=== PATIENT | female | born 1955 | race Caucasian/White ===

== ENCOUNTER → 2020-05-23 | Outpatient (CLI) | payer BC ==
--- NOTE | 2020-05-23 21:33 | CT ---
EXAMINATION TYPE: CT angio neck DATE OF EXAM: 05/23/2020 HISTORY: abnormal carotid US; left-sided stenosis suspected. COMPARISON: NONE CT DLP: 483.4 mGycm. Automated Exposure Control for Dose Reduction was Utilized. TECHNIQUE: CTA scan of the neck is performed with IV Contrast, patient injected with 65cc mL of Isov ue 370, axial images are obtained, coronal and sagittal reformatted images are reviewed. Three-D roxy nstructed images are created on an independent workstation and reviewed. FINDINGS: Carotid/Vascular Structures: Mild mixed plaque in the aortic arch. Normal 3 vessel origin from the ao rtic arch. Right common carotid artery shows normal origin from right brachiocephalic artery. No sign ificant plaque or stenosis of right common or internal carotid artery including at level of right car otid bulb. Patent external carotid artery without significant plaque or stenosis. Mild calcified plaq ue supraclinoid segment distal right internal carotid artery. Codominant vertebrobasilar system patent to basilar origin. No significant plaque or stenosis in the left common or internal carotid artery including available c arotid bulb. Patent external carotid artery without significant plaque or stenosis. Seen best on coronal mid series 11 image 16 there is severe peripheral mixed predominantly noncalcifi ed plaque in the left subclavian artery causing stenosis seen greatest sagittal image 14 series 12 an d axial image 27 with lumen diameter narrowed to 1.9 mm and reconstitution superior to this to 7.1 mm marked on coronal map images. Other: Mild to moderate underlying emphysematous change in the visualized upper lungs. Slight underly ing scoliotic curvature positioning. Loss of normal cervical curvature with moderate spurring and dis c space narrowing C5-C6 and C6-C7 levels. IMPRESSION: Significant focal plaque left subclavian artery causing stenosis estimated at 70-75% as d etailed above.
== END | disposition home or self-care (01) ==
LOC: RADCTMAIN 18:53
PROVIDERS: ATTEND Thoracic Surgery (Cardiothoracic Vascular Surgery)
DX: I70.8 Atherosclerosis of other arteries (principal)
CPT/HCPCS: 70498; Q9967

== ENCOUNTER 2020-06-20 15:43 | Emergency (ER) | payer BC ==
[2020-06-20 15:49] VITALS: BP 159/87; PULSE 89; RESP 18; TEMP 98.3
--- NOTE | 2020-06-20 16:18 | ED ---
General Adult HPI - General Chief complaint: Wound/Laceration Stated complaint: Finger lac Time Seen by Provider: 06/20/20 15:57 Source: patient, RN notes reviewed Mode of arrival: ambulatory Limitations: no limitations - History of Present Illness Initial comments: 65-year-old female presents to the emergency department for a chief complaint of laceration. Patient has a laceration noted to her right fifth digit lateral aspect. Patient states this occurred 4 days ago. Patient states she was using a Ernie slicer when she sliced off the lateral aspect of the right fifth digit distal phalanx. Patient states she cannot get this stopped bleeding so she put the avulsed skin back on and held pressure. Patient states it is now adhered and she is unsure what to do with this. Patient is up-to-date on tetanus as of 2 years ago. She denies any streaking redness. Denies fevers or chills.Patient has no other complaints at this time including shortness of breath, chest pain, abdominal pain, nausea or vomiting, headache, or visual changes. - Related Data Home Medications Medication Instructions Recorded Confirmed Simvastatin [Zocor] 10 mg PO HS 06/27/15 08/09/15 amLODIPine BESYLATE [Norvasc] 2.5 mg PO BID 06/27/15 08/09/15 lisinopriL [Zestril] 10 mg PO BID 06/27/15 08/09/15 Previous Rx's Medication Instructions Recorded Cephalexin [Keflex] 500 mg PO Q6HR 7 Days #28 cap 06/20/20 Allergies Allergy/AdvReac Type Severity Reaction Status Date / Time No Known Allergies Allergy Verified 06/20/20 15:49 Review of Systems ROS Statement: Those systems with pertinent positive or pertinent negative responses have been documented in the HPI. ROS Other: All systems not noted in ROS Statement are negative. Past Medical History Past Medical History: Eye Disorder, Hyperlipidemia, Hypertension Additional Past Medical History / Comment(s): KYLE CATARACTS, CYST ON LIVER History of Any Multi-Drug Resistant Organisms: None Reported Past Surgical History: Hysterectomy, Orthopedic Surgery Additional Past Surgical History / Comment(s): RT LEG ORIF,CATARACT RIGHT EYE Additional Past Anesthesia/Blood Transfusion Reaction / Comment(s): STATES IS VERY SENSITIVE TO MEDICATIONS, HAS A VERY HARD TIME WAKING UP WITH ANY ANESTHESIA Past Psychological History: No Psychological Hx Reported Smoking Status: Current every day smoker Past Alcohol Use History: None Reported Past Drug Use History: None Reported - Past Family History Sister(s) Family Medical History: Cancer Additional Family Medical History / Comment(s): 2 SISTERS, ONE ON SKIN OF THIGH, ONE PANCREAS General Exam Limitations: no limitations General appearance: alert, in no apparent distress Head exam: Present: atraumatic, normocephalic, normal inspection Eye exam: Present: normal appearance, PERRL, EOMI. Absent: scleral icterus, conjunctival injection, periorbital swelling ENT exam: Present: normal exam, mucous membranes moist Neck exam: Present: normal inspection, full ROM. Absent: tenderness, meningismus, lymphadenopathy Respiratory exam: Present: normal lung sounds bilaterally. Absent: respiratory distress, wheezes, rales, rhonchi, stridor Cardiovascular Exam: Present: regular rate, normal rhythm, normal heart sounds. Absent: systolic murmur, diastolic murmur, rubs, gallop, clicks Extremities exam: Present: other (patient has a superficial skin avulsion laceration noted to the lateral aspect of the right fifth distal phalanx. This is not deep. Do not suspect this to involve bone. intact remainder of finger has a capillary refill less than 2 seconds. There is a blackened skin flap applied to the avulsion injury area without capillary refill..) Course Vital Signs 06/20/20 15:47 Temperature 98.3 F Pulse Rate 89 Respiratory 18 Rate Blood Pressure 159/87 O2 Sat by Pulse 99 Oximetry Medical Decision Making - Medical Decision Making HPI and physical exam as documented. At this point skin flap was reapplied 4 days ago by patient and is now adhered to the wound. Skin flap is black and however the remainder of the finger has intact capillary refill. I do not suspect this to involve bone or other deep structure injury given nature of superficial avulsion. At this point as flap is adhered it will not be removed. it will likely scab and fall off with time. However I did start patient on antibiotics and discussed monitoring for signs of infection. She will follow-up with her doctor. She will return for any worsening symptoms. Disposition Clinical Impression: Avulsion of skin of finger Disposition: HOME SELF-CARE Condition: Good Instructions (If sedation given, give patient instructions): Skin Avulsion (ED) Additional Instructions: please monitor for infection such as swelling or spreading redness and return if these occur. Otherwise take antibiotic as directed. Follow-up with your doctor in one to 2 days. Return to the emergency room for any worsening symptoms. Prescriptions: Cephalexin [Keflex] 500 mg PO Q6HR 7 Days #28 cap Is patient prescribed a controlled substance at d/c from ED?: No Referrals: Marshall Angel MD [Primary Care Provider] - 1-2 days Time of Disposition: 16:17
== END 2020-06-20 16:26 | disposition home or self-care (01) ==
LOC: EC 15:43
DX: S61.216A Laceration without foreign body of right little finger without damage to nail, initial encounter (principal); I10 Essential (primary) hypertension; E78.5 Hyperlipidemia, unspecified; F17.200 Nicotine dependence, unspecified, uncomplicated; Z79.899 Other long term (current) drug therapy; Z98.890 Other specified postprocedural states; W26.8XXA Contact with other sharp object(s), not elsewhere classified, initial encounter; Y92.009 Unspecified place in unspecified non-institutional (private) residence as the place of occurrence of the external cause
CPT/HCPCS: 99282

== ENCOUNTER 2020-07-20 06:01 | Day surgery (SDC) | payer BC ==
[2020-07-14 13:47] VITALS: BMI 17.9
[~2020-07-20 06:01] MED LIST: ALPRAZolam 0.25 MG TAB PO PRN; ASPIRIN 325 MG TAB PO STA; SODIUM CHLORIDE 0.9% 1,000 ML in EMPTY BAG 1 BAG IV ONE; ZOLPIDEM 5 MG TAB PO PRN
[2020-07-20] MEDS ORDERED: SODIUM CHLORIDE 0.9% 1,000 ML IV ONE (06:11)
[2020-07-20 06:28] VITALS: RESP 16; TEMP 98.5
[2020-07-20 06:36] LABS: Basophils # (A) 0.2 k/uL (0-0.2); Basophils % (A) 2 %; Eosinophils # (A) 0.3 k/uL (0-0.7); Eosinophils % (A) 3 %; HCT 48.2 % (34.0-46.0); HGB 15.3 gm/dL (11.4-16.0); Lymphocytes # (A) 2.6 k/uL (1.0-4.8); Lymphocytes % (A) 26 %; MCH 29.1 pg (25.0-35.0); MCHC 31.8 g/dL (31.0-37.0); MCV 91.5 fL (80.0-100.0); Monocytes # (A) 0.4 k/uL (0-1.0); Monocytes % (A) 4 %; Neutrophils # (A) 6.2 k/uL (1.3-7.7); Neutrophils % (A) 64 %; Platelet Count 379 k/uL (150-450); RBC 5.26 m/uL (3.80-5.40); RDW 13.2 % (11.5-15.5); WBC 9.7 k/uL (3.8-10.6)
[2020-07-20 06:43] LABS: Sodium 142 mmol/L (137-145)
[2020-07-20 06:44] LABS: African American GFR (CKD) >90 (>60 ml/min/1.73 sqM); Anion Gap 9 mmol/L; Blood Urea Nitrogen 13 mg/dL (7-17); Calcium 9.5 mg/dL (8.4-10.2); Carbon Dioxide 29 mmol/L (22-30); Chloride 104 mmol/L (98-107); Glucose 96 mg/dL (74-99); Non-African American GFR(CKD) 88 (>60 ml/min/1.73 sqM)
[2020-07-20 06:56] LABS: Potassium 4.1 mmol/L (3.5-5.1)
[2020-07-20] MEDS ORDERED: MIDAZOLAM 2 MG/2 ML VIAL IVP ONE (07:48)
[2020-07-20] MEDS ORDERED: LIDOCAINE 1% INJ 10MG/ML (20 ML MDV) SQ ONE (07:49)
[2020-07-20] MEDS ORDERED: IOPAMIDOL-250 100ML BTL INTRAARTER ONE (08:15)
[2020-07-20] MEDS ORDERED: CLOPIDOGREL 75 MG TAB PO ONE (08:20)
[2020-07-20] MEDS ORDERED: SODIUM CHLORIDE 0.9% 1,000 ML IV SCH (09:30)
[2020-07-20 12:43] VITALS: BP 156/78; PULSE 88
--- NOTE | 2020-07-20 14:01 | P.OP ---
Date of Procedure: 07/20/20 Description of Procedure: Preoperative diagnosis: Left subclavian steal syndrome, subclavian artery stenosis Postoperative diagnosis: Same Procedure: [#1 ultrasound guided left upper extremity brachial artery access #2 left upper extremity angiogram #3 left subclavian stent 8 x 27 VISI Pro #4 moderate conscious sedation 25 minutes with Versed and fentanyl] Surgeon: Nikole Lezama D.O. EBL: [Less than 10 mL] IV fluids: [See records] Urine output: [None measured] Drains: [None placed] Complications: [None immediately apparent] Condition: [Stable to recovery] Operative indication and findings: [The patient is a 65-year-old female who initially got workup and evaluated for dizziness. She was shown to have retrograde flow of her vertebrals and pressure discrepancies in her upper extremities. She subsequently underwent a computed tomography scan showing subclavian stenosis area at that initial point of her visit she was not having any symptoms. Over the next few months with increasing use, she began having more weakness and dropping things in her left extremity. She presented and was interested in undergoing further revascularization attempts. Risks and benefits were discussed. She seemingly understood and was willing to proceed as such.] Procedure in detail: [The patient was taken to the operative suite and placed in supine position. The left upper extremity was prepped and draped in usual sterile fashion. A preprocedure timeout was performed, all parties are in agreement. The OpSite was utilized and the left brachial artery was identified. The skin overlying was anesthetized with 1% lidocaine plain and under direct visualization a micropuncture needle was used to access the brachial artery. A 6 slender sheath was placed. A left upper artery angiogram was performed revealing a widely patent brachial, axillary and distal subclavian artery. At the proximal subclavian just proximal to the vertebral artery, there was a high- grade stenosis greater than 90%. Catheters and wires were used. After crossing the lesion the intraluminal space was confirmed. Given the location of the vertebral artery, a noncovered stent was utilized. An 8 x 27 was placed overlying the stenosis and deployed. Post procedure imaging revealed significant improvement with minimal stenosis remaining. Catheters and wires were removed. The sheath was removed and manual pressure was held until hemostasis was adequate. Patient continued to have palpable pulses following the procedure. Her radial pulses increased in strength following the procedure.]
--- NOTE | 2020-07-20 16:48 | IR ---
EXAMINATION TYPE: IR stent intravas non coronary DATE OF EXAM: 07/20/2020 CLINICAL HISTORY: Left subclavian stenosis. TECHNIQUE: Fluoroscopy. COMPARISON: CTA neck May 23, 2020. FINDINGS: Fluoroscopic guidance was provided during left upper extremity angiogram with stenting pro cedure performed by Dr. Lezama. A total of 100 seconds of fluoroscopic time was utilized during the p rocedure and four cine runs are acquired. Please refer to procedure note for further details as I was not present nor performed procedure. IMPRESSION: As Above.
== END 2020-07-20 12:30 | disposition home or self-care (01) ==
LOC: CATHCVL 06:01
PROVIDERS: ATTEND Surgery
DX: I70.8 Atherosclerosis of other arteries (principal); G45.8 Other transient cerebral ischemic attacks and related syndromes; M79.606 Pain in leg, unspecified; Z72.0 Tobacco use; Z79.899 Other long term (current) drug therapy; Z90.710 Acquired absence of both cervix and uterus
CPT/HCPCS: 75710; 37236; 80048; 85025; C1894; C1769 ×3; C1876; J2250; J2001; Q9966; 50433

== ENCOUNTER 2021-04-18 20:31 | Emergency (ER) | payer BC, OTHER ==
[2021-04-18 20:54] VITALS: RESP 18; TEMP 98
[2021-04-18] MEDS ORDERED: SODIUM CHLORIDE 0.9% 500 ML 500 ML IV STA (21:34)
[2021-04-18 22:22] LABS: Basophils # (A) 0.1 k/uL (0-0.2); Basophils % (A) 1 %; Eosinophils # (A) 0.2 k/uL (0-0.7); Eosinophils % (A) 2 %; HCT 43.2 % (34.0-46.0); HGB 14.4 gm/dL (11.4-16.0); Lymphocytes # (A) 3.4 k/uL (1.0-4.8); Lymphocytes % (A) 37 %; MCH 29.6 pg (25.0-35.0); MCHC 33.3 g/dL (31.0-37.0); MCV 88.7 fL (80.0-100.0); Mean Platelet Volume 6.7; Monocytes # (A) 0.4 k/uL (0-1.0); Monocytes % (A) 4 %; Neutrophils # (A) 5.1 k/uL (1.3-7.7); Neutrophils % (A) 55 %; Platelet Count 385 k/uL (150-450); RBC 4.86 m/uL (3.80-5.40); RDW 13.3 % (11.5-15.5); WBC 9.3 k/uL (3.8-10.6)
--- NOTE | 2021-04-18 22:28 | ED ---
Recheck HPI - General Chief Complaint: Recheck/Abnormal Lab/Rx Stated Complaint: Dizzy,Tingle in fingers Time Seen by Provider: 04/18/21 21:06 Source: patient Mode of arrival: ambulatory Limitations: no limitations - History of Present Illness Initial Comments: 65 year-old female patient presents to the emergency department for evaluation of dizziness, elevated blood pressure, and tingling to the bilateral fingers. Patient states that she has been feeling lightheaded on and off all day. States that the feeling comes out of nowhere, doesn't seem to worsen with position changes or head movement. States that tonight she was checking her blood pressures and they kept rising. She states that afterward she had tingling in her fingers so she came in for further evaluation. States the tingling was bilateral, not accompanied by weakness. Denies any difficulty speaking or facial droop. States her she takes amlodipine and lisinopril for blood pressure, her physician added hydrochlorothiazide 2-3 weeks ago. She denies any headache, blurred vision, or double vision. Denies any current numbness or tingling. Denies any chest pain or shortness of breath. Patient denies any recent rash, fever, chills, cough, abdominal pain, nausea, vomiting, diarrhea, constipation, back pain, hematuria, dysuria, urinary urgency, urinary frequency, headache, visual changes, or any other complaints. - Related Data Home Medications Medication Instructions Recorded Confirmed Simvastatin [Zocor] 10 mg PO HS 06/27/15 04/18/21 lisinopriL [Zestril] 10 mg PO BID 06/27/15 04/18/21 Aspirin 81 mg PO DAILY 07/20/20 04/18/21 amLODIPine [Norvasc] 2.5 mg PO BID 04/18/21 04/18/21 hydroCHLOROthiazide 25 mg PO DAILY 04/18/21 04/18/21 Allergies Allergy/AdvReac Type Severity Reaction Status Date / Time No Known Allergies Allergy Verified 04/18/21 21:55 Review of Systems ROS Statement: Those systems with pertinent positive or pertinent negative responses have been documented in the HPI. ROS Other: All systems not noted in ROS Statement are negative. 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 History of Any Multi-Drug Resistant Organisms: None Reported Past Surgical History: Hysterectomy, Orthopedic Surgery Additional Past Surgical History / Comment(s): RT LEG ORIF, BILATERAL CATARACTS REMOVED. Past Anesthesia/Blood Transfusion Reactions: Motion Sickness Additional Past Anesthesia/Blood Transfusion Reaction / Comment(s): STATES IS VERY SENSITIVE TO MEDICATIONS, HAS A VERY HARD TIME WAKING UP WITH ANY ANESTHESIA. Past Psychological History: No Psychological Hx Reported Smoking Status: Current every day smoker Past Alcohol Use History: None Reported Past Drug Use History: None Reported - Past Family History Brother(s) Additional Family Medical History / Comment(s): "Blood clot, from it." Sister(s) Family Medical History: Cancer Additional Family Medical History / Comment(s): 2 SISTERS, ONE PANCREACREATIC, other had it in her leg. General Exam Limitations: no limitations General appearance: alert, in no apparent distress, other (This is a well-deve loped, well-nourished adult female patient in no acute distress. Vital signs upon presentation temperature 98.2F, pulse 83, respirations 18, blood pressure 157/78, pulse ox 98% on room air.) Eye exam: Present: normal appearance, PERRL, EOMI. Absent: scleral icterus, conjunctival injection, periorbital swelling ENT exam: Present: normal exam, normal oropharynx, mucous membranes moist Respiratory exam: Present: normal lung sounds bilaterally. Absent: respiratory distress, wheezes, rales, rhonchi, stridor Cardiovascular Exam: Present: regular rate, normal rhythm, normal heart sounds. Absent: systolic murmur, diastolic murmur, rubs, gallop, clicks GI/Abdominal exam: Present: soft, normal bowel sounds. Absent: distended, tenderness, guarding, rebound, rigid Neurological exam: Present: alert, oriented X3, CN II-XII intact Expanded Speech: Present: fluid speech Cranial nerves: EOM's Intact: Normal, Nystagmus: Normal Motor strength exam: RUE: 5, LUE: 5, RLE: 5, LLE: 5 Eye Response: (4) open spontaneously Motor Response: (6) obeys commands Verbal Response: (5) oriented Romulo Total: 15 Psychiatric exam: Present: normal affect, normal mood Skin exam: Present: warm, dry, intact, normal color. Absent: rash Course Vital Signs 04/18/21 04/18/21 04/19/21 20:50 21:50 00:52 Temperature 98.0 F Pulse Rate 83 Pulse Rate [ 83 76 Sitting] Pulse Rate [ 82 78 Standing] Pulse Rate [ 76 78 Supine] Respiratory 18 Rate Blood Pressure 157/78 Blood Pressure 131/70 130/72 [Sitting] Blood Pressure 97/68 114/78 [Standing] Blood Pressure 129/70 115/78 [Supine] O2 Sat by Pulse 98 Oximetry Medical Decision Making - Medical Decision Making 65-year-old female patient presented to the emergency department today for evaluation of dizziness, elevated blood pressure, and paresthesia to the bilateral hands. Physical examination was unremarkable. She was neurologically intact without focal deficits. BP here was elevated. Labs reviewed and were unr emarkable. BP dropped to 90s systolic with orthostatic vitals. She was given 1L IV fluids. Repeated orthos which did improve. She will be discharged to follow up with her primary care physician for recheck in 1-2 days. Return parameters were discussed in detail. She verbalizes understanding and agrees with this plan. Case discussed with my attending Dr. Alonso. - Lab Data Result diagrams: 04/18/21 22:03 04/18/21 22:03 Lab Results 04/18/21 04/18/21 04/18/21 Range/Units 22:03 22:03 22:03 WBC 9.3 (3.8-10.6) k/uL RBC 4.86 (3.80-5.40) m/uL Hgb 14.4 (11.4-16.0) gm/dL Hct 43.2 (34.0-46.0) % MCV 88.7 (80.0-100.0) fL MCH 29.6 (25.0-35.0) pg MCHC 33.3 (31.0-37.0) g/dL RDW 13.3 (11.5-15.5) % Plt Count 385 (150-450) k/uL MPV 6.7 Neutrophils % 55 % Lymphocytes % 37 % Monocytes % 4 % Eosinophils % 2 % Basophils % 1 % Neutrophils # 5.1 (1.3-7.7) k/uL Lymphocytes # 3.4 (1.0-4.8) k/uL Monocytes # 0.4 (0-1.0) k/uL Eosinophils # 0.2 (0-0.7) k/uL Basophils # 0.1 (0-0.2) k/uL Sodium 128 L (137-145) mmol/L Potassium 4.1 (3.5-5.1) mmol/L Chloride 92 L (98-107) mmol/L Carbon Dioxide 28 (22-30) mmol/L Anion Gap 8 mmol/L BUN 10 (7-17) mg/dL Creatinine 0.59 (0.52-1.04) mg/dL Est GFR (CKD-EPI)AfAm >90 (>60 ml/min/1.73 sqM) Est GFR (CKD-EPI)NonAf >90 (>60 ml/min/1.73 sqM) Glucose 93 (74-99) mg/dL Calcium 9.6 (8.4-10.2) mg/dL Total Bilirubin 0.2 (0.2-1.3) mg/dL AST 24 (14-36) U/L ALT 14 (4-34) U/L Alkaline Phosphatase 81 (38-126) U/L Troponin I (0.000-0.034) ng/mL Total Protein 6.9 (6.3-8.2) g/dL Albumin 4.4 (3.5-5.0) g/dL Urine Color Colorless Urine Appearance Clear (Clear) Urine pH 7.5 (5.0-8.0) Ur Specific [place] 1.002 (1.001-1.035) Urine Protein Negative (Negative) Urine Glucose (UA) Negative (Negative) Urine Ketones Negative (Negative) Urine Blood Small H (Negative) Urine Nitrite Negative (Negative) Urine Bilirubin Negative (Negative) Urine Urobilinogen <2.0 (<2.0) mg/dL Ur Leukocyte Esterase Large H (Negative) Urine RBC 2 (0-5) /hpf Urine WBC 33 H (0-5) /hpf Ur Squamous Epith Cells 2 (0-4) /hpf Urine Bacteria Moderate H (None) /hpf Urine Mucus Rare H (None) /hpf 04/18/21 Range/Units 22:03 WBC (3.8-10.6) k/uL RBC (3.80-5.40) m/uL Hgb (11.4-16.0) gm/dL Hct (34.0-46.0) % MCV (80.0-100.0) fL MCH (25.0-35.0) pg MCHC (31.0-37.0) g/dL RDW (11.5-15.5) % Plt Count (150-450) k/uL MPV Neutrophils % % Lymphocytes % % Monocytes % % Eosinophils % % Basophils % % Neutrophils # (1.3-7.7) k/uL Lymphocytes # (1.0-4.8) k/uL Monocytes # (0-1.0) k/uL Eosinophils # (0-0.7) k/uL Basophils # (0-0.2) k/uL Sodium (137-145) mmol/L Potassium (3.5-5.1) mmol/L Chloride (98-107) mmol/L Carbon Dioxide (22-30) mmol/L Anion Gap mmol/L BUN (7-17) mg/dL Creatinine (0.52-1.04) mg/dL Est GFR (CKD-EPI)AfAm (>60 ml/min/1.73 sqM) Est GFR (CKD-EPI)NonAf (>60 ml/min/1.73 sqM) Glucose (74-99) mg/dL Calcium (8.4-10.2) mg/dL Total Bilirubin (0.2-1.3) mg/dL AST (14-36) U/L ALT (4-34) U/L Alkaline Phosphatase (38-126) U/L Troponin I <0.012 (0.000-0.034) ng/mL Total Protein (6.3-8.2) g/dL Albumin (3.5-5.0) g/dL Urine Color Urine Appearance (Clear) Urine pH (5.0-8.0) Ur Specific [place] (1.001-1.035) Urine Protein (Negative) Urine Glucose (UA) (Negative) Urine Ketones (Negative) Urine Blood (Negative) Urine Nitrite (Negative) Urine Bilirubin (Negative) Urine Urobilinogen (<2.0) mg/dL Ur Leukocyte Esterase (Negative) Urine RBC (0-5) /hpf Urine WBC (0-5) /hpf Ur Squamous Epith Cells (0-4) /hpf Urine Bacteria (None) /hpf Urine Mucus (None) /hpf - EKG Data -: EKG Interpreted by Me EKG Comments: EKG obtained at 2146 shows normal sinus rhythm with a ventricular rate 78, NV interval 176, QRS duration 90, QT 386, QTC 440. No evidence of ST elevation or depression. Disposition Clinical Impression: Dizziness, Orthostatic hypotension Disposition: HOME SELF-CARE Condition: Good Instructions (If sedation given, give patient instructions): Paresthesia (ED), Dizziness (ED) Additional Instructions: Follow-up with the primary care physician for recheck as soon as possible. Call in the morning for further instructions regarding her blood pressure medication. Informed them you had orthostatic hypotension and had to come to the emergency department. Return for any new, worsening, or concerning symptoms. Is patient prescribed a controlled substance at d/c from ED?: No Referrals: Marshall Angel MD [Primary Care Provider] - 1-2 days Time of Disposition: 01:06
[2021-04-18 22:35] LABS: ALT 14 U/L (4-34); AST 24 U/L (14-36); African American GFR (CKD) >90 (>60 ml/min/1.73 sqM); Albumin 4.4 g/dL (3.5-5.0); Alkaline Phosphatase 81 U/L (38-126); Anion Gap 8 mmol/L; Blood Urea Nitrogen 10 mg/dL (7-17); Calcium 9.6 mg/dL (8.4-10.2); Carbon Dioxide 28 mmol/L (22-30); Chloride 92 mmol/L (98-107); Glucose 93 mg/dL (74-99); Non-African American GFR(CKD) >90 (>60 ml/min/1.73 sqM); Potassium 4.1 mmol/L (3.5-5.1); Sodium 128 mmol/L (137-145); Total Bilirubin 0.2 mg/dL (0.2-1.3); Total Protein 6.9 g/dL (6.3-8.2)
[2021-04-18 22:44] LABS: Appearance,Urine Clear (Clear); Bacteria,Urine Moderate /hpf; Bilirubin,Urine Negative (Negative); Blood,Urine Small (Negative); Color,Urine Colorless; Glucose,Urine (UA) Negative (Negative); Ketones,Urine Negative (Negative); Leukocyte Esterase,Urine Large (Negative); Mucus,Urine Rare /hpf; Nitrite,Urine Negative (Negative); PH, Urine 7.5 (5.0-8.0); Protein,Urine Negative (Negative); RBC,Urine 2 /hpf (0-5); Specific Gravity,Urine 1.002 (1.001-1.035); Squamous Epithelial Cell,Urine 2 /hpf (0-4); Urobilinogen,Urine <2.0 mg/dL (<2.0); WBC,Urine 33 /hpf (0-5)
[2021-04-19 01:01] VITALS: BP 115/78; PULSE 78
== END 2021-04-19 01:25 | disposition home or self-care (01) ==
LOC: EC 20:31
DX: I95.1 Orthostatic hypotension (principal); R20.2 Paresthesia of skin; E78.5 Hyperlipidemia, unspecified; M79.7 Fibromyalgia; F17.200 Nicotine dependence, unspecified, uncomplicated; Z79.82 Long term (current) use of aspirin; Z79.899 Other long term (current) drug therapy
CPT/HCPCS: 36415; 80053; 81001; 84484; 85025; 87086; 93005; 99284

== ENCOUNTER 2022-10-31 11:20 | Emergency (ER) | payer MEDICARE ==
[2022-10-31 11:34] VITALS: TEMP 97.6
--- NOTE | 2022-10-31 11:59 | XR ---
EXAMINATION TYPE: XR foot complete LT, XR ankle complete LT DATE OF EXAM: 10/31/2022 CLINICAL HISTORY: pain TECHNIQUE: Frontal, lateral and oblique images of the left foot and ankle are obtained. COMPARISON: None. FINDINGS: Vague lucency traverses the body of the os calcis. Nondisplaced fracture is difficult to ex clude. Correlate clinically with point tenderness. Osseous structures are otherwise intact. The joint spaces appear within normal limits. Mild hallux valgus deformity of the great toe. The overlying so ft tissue appears unremarkable. IMPRESSION: : Vague lucency traverses the body of the os calcis. Nondisplaced fracture is difficult to exclude. C orrelate clinically with point tenderness.
--- NOTE | 2022-10-31 13:06 | CT ---
EXAMINATION TYPE: CT foot LT wo con DATE OF EXAM: 10/31/2022 COMPARISON: Same day ankle and foot x-ray HISTORY: Pain, possible calcaneus fracture CT DLP: 190.8 mGycm Automated exposure control for dose reduction was used. Unenhanced CT of the left foot was performed with bone and soft tissue window settings submitted. Coronal axial and sagittal images are reviewed. FINDINGS: Virtually nondisplaced fracture of the left os calcis at its body. There is mild comminution seen ext ending laterally as well as a fracture component extending to the medial calcaneal body. There is a n ondisplaced component extending to the superior facet with extension into the talocalcaneal joint med ially. Posterior facet is intact. No extension into the calcaneal sulcus or sinus tarsi soft tissue edema is noted. No additional fractures are evident. IMPRESSION: VIRTUALLY NONDISPLACED FRACTURE OF THE OS CALCIS ON THE LEFT DISCUSSED ABOVE.
--- NOTE | 2022-10-31 13:25 | ED ---
Lower Extremity Injury HPI - General Chief Complaint: Extremity Injury, Lower Stated Complaint: fall, lt foot injury Time Seen by Provider: 10/31/22 12:01 Source: patient, RN notes reviewed Mode of arrival: ambulatory Limitations: no limitations - History of Present Illness Initial Comments: 67-year-old female presents emergency Department with chief complaint left foot and ankle pain. Patient states that she misstepped and fell onto her left heel. Patient has bruising, swelling. Patient states is very painful to put any weight on her foot. No head injury loss conscious no paresthesias. Patient states that she is seen Dr. Noonan for right leg injury in the past. - Related Data Home Medications Medication Instructions Recorded Confirmed Simvastatin [Zocor] 10 mg PO HS 06/27/15 04/18/21 lisinopriL [Zestril] 10 mg PO BID 06/27/15 04/18/21 Aspirin 81 mg PO DAILY 07/20/20 04/18/21 amLODIPine [Norvasc] 2.5 mg PO BID 04/18/21 04/18/21 hydroCHLOROthiazide 25 mg PO DAILY 04/18/21 04/18/21 Allergies Allergy/AdvReac Type Severity Reaction Status Date / Time No Known Allergies Allergy Verified 10/31/22 11:34 Review of Systems ROS Statement: Those systems with pertinent positive or pertinent negative responses have been documented in the HPI. ROS Other: All systems not noted in ROS Statement are negative. 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 History of Any Multi-Drug Resistant Organisms: None Reported Past Surgical History: Hysterectomy, Orthopedic Surgery Additional Past Surgical History / Comment(s): RT LEG ORIF, BILATERAL CATARACTS REMOVED. Past Anesthesia/Blood Transfusion Reactions: Motion Sickness Additional Past Anesthesia/Blood Transfusion Reaction / Comment(s): STATES IS VERY SENSITIVE TO MEDICATIONS, HAS A VERY HARD TIME WAKING UP WITH ANY ANESTHESIA. Past Psychological History: No Psychological Hx Reported Smoking Status: Current every day smoker Past Alcohol Use History: None Reported Past Drug Use History: None Reported - Past Family History Brother(s) Additional Family Medical History / Comment(s): "Blood clot, from it." Sister(s) Family Medical History: Cancer Additional Family Medical History / Comment(s): 2 SISTERS, ONE PANCREACREATIC, other had it in her leg. General Exam Limitations: no limitations General appearance: alert, in no apparent distress Head exam: Present: atraumatic, normocephalic, normal inspection Respiratory exam: Present: normal lung sounds bilaterally. Absent: respiratory distress, wheezes, rales, rhonchi, stridor Cardiovascular Exam: Present: regular rate, normal rhythm, normal heart sounds. Absent: systolic murmur, diastolic murmur, rubs, gallop, clicks Extremities exam: Present: other (Left heel there is tenderness palpation ecchymosis on the dorsal aspect and plantar aspect of the midfoot. No proximal tib-fib tenderness neurovascular intact) Neurological exam: Present: alert Skin exam: Present: warm, dry, intact, normal color. Absent: rash Course Vital Signs 10/31/22 11:32 Temperature 97.6 F Pulse Rate 106 H Respiratory 20 Rate Blood Pressure 143/69 O2 Sat by Pulse 99 Oximetry Procedures - Orthopedic Splinting/Casting Injury #1 Side: left Lower Extremity Injury Location: short leg, ankle, foot Lower Extremity Immobilizer: posterior splint (Well-padded), synthetic pre- padded splint Other Orthopedic Equipment: walker Additional Comments: Neurovascular intact before procedure, performed by me Medical Decision Making - Medical Decision Making 67-year-old female presented for a fall, left foot and ankle x-ray left foot and left ankle interpreted by me there is calcaneus fracture CT of the foot was obtained interpreted by me showing calcaneus fracture nondisplaced and read by radiology. Case discussed with Dr. Vital recommends patient be placed in a posterior splint to follow-up in office tomorrow to remain nonweightbearing. She is to elevate, ice and take [id number] pain meds as directed she was offered narcotic pain meds patient declines. Disposition Clinical Impression: Left calcaneal fracture Disposition: HOME SELF-CARE Condition: Stable Instructions (If sedation given, give patient instructions): Calcaneal Fracture (ED) Additional Instructions: Please return to the Emergency Department if symptoms worsen or any other concerns. Please remain nonweightbearing and follow-up with orthopedics as directed. Is patient prescribed a controlled substance at d/c from ED?: No Referrals: Marshall Angel MD [Primary Care Provider] - 1-2 days Jose Luis Vital MD [STAFF PHYSICIAN] - 1-2 days Time of Disposition: 13:24
[2022-10-31 13:31] VITALS: BP 151/85; PULSE 86; RESP 18
== END 2022-10-31 13:31 | disposition home or self-care (01) ==
LOC: EC 11:20
DX: S92.002A Unspecified fracture of left calcaneus, initial encounter for closed fracture (principal); I10 Essential (primary) hypertension; E78.5 Hyperlipidemia, unspecified; F17.200 Nicotine dependence, unspecified, uncomplicated; Z79.899 Other long term (current) drug therapy; Z79.82 Long term (current) use of aspirin; W10.9XXA Fall (on) (from) unspecified stairs and steps, initial encounter
CPT/HCPCS: 29515; 99284

== ENCOUNTER 2024-11-25 10:18 | Emergency (ER) | payer MEDICARE ==
[2024-11-25 10:22] VITALS: TEMP 97.9
--- NOTE | 2024-11-25 10:35 | ED ---
Recheck HPI - General Chief Complaint: Recheck/Abnormal Lab/Rx Stated Complaint: sharp pain right shoulder blade Time Seen by Provider: 11/25/24 10:28 Source: patient, RN notes reviewed Mode of arrival: ambulatory Limitations: no limitations - History of Present Illness Initial Comments: This is a 69-year-old female with history of hypertension presenting with elevated blood pressure and right scapula pain since 0600 this morning. Patient states pain in right back woke up this morning, described as intermittent and sharp. Denies radiation of pain, tearing sensation, shortness of breath. Denies pain being reproducible with cough, palpation or inhalation. Endorses blood pressure of 200/100 mmHg, which is much higher than she normally sees. En dorses daily use of lisinopril, amlodipine and ASA 81, which he has taken this morning with no drop in blood pressure. Denies history of AMI, PE, aneurysm. Endorses a family history of AMI. Denies fever, chills, chest pain, dyspnea, pallor, diaphoresis, abdominal pain, N/V/D, dizziness. Onset/Timin -: hour(s) Time: 06:00 Symptoms Since Prior Visit: no new symptoms Associated Symptoms: none - Related Data Home Medications Medication Instructions Recorded Confirmed Simvastatin [Zocor] 10 mg PO HS 06/27/15 04/18/21 lisinopriL [Zestril] 10 mg PO BID 06/27/15 04/18/21 Aspirin 81 mg PO DAILY 07/20/20 04/18/21 amLODIPine [Norvasc] 2.5 mg PO BID 04/18/21 04/18/21 hydroCHLOROthiazide 25 mg PO DAILY 04/18/21 04/18/21 Allergies Allergy/AdvReac Type Severity Reaction Status Date / Time No Known Allergies Allergy Verified 11/25/24 10:22 Review of Systems ROS Statement: Those systems with pertinent positive or pertinent negative responses have been documented in the HPI. ROS Other: All systems not noted in ROS Statement are negative. 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 History of Any Multi-Drug Resistant Organisms: None Reported Past Surgical History: Hysterectomy, Orthopedic Surgery Additional Past Surgical History / Comment(s): RT LEG ORIF, BILATERAL CATARACTS REMOVED. Past Anesthesia/Blood Transfusion Reactions: Motion Sickness Additional Past Anesthesia/Blood Transfusion Reaction / Comment(s): STATES IS VERY SENSITIVE TO MEDICATIONS, HAS A VERY HARD TIME WAKING UP WITH ANY ANESTHESIA. Past Psychological History: No Psychological Hx Reported Smoking Status: Current every day smoker Past Alcohol Use History: None Reported Past Drug Use History: None Reported - Past Family History Brother(s) Additional Family Medical History / Comment(s): "Blood clot, from it." Sister(s) Family Medical History: Cancer Additional Family Medical History / Comment(s): 2 SISTERS, ONE PANCREACREATIC, other had it in her leg. General Exam Limitations: no limitations General appearance: alert, in no apparent distress Head exam: Present: atraumatic, normocephalic, normal inspection Eye exam: Present: normal appearance, PERRL, EOMI. Absent: scleral icterus, conjunctival injection, periorbital swelling ENT exam: Present: normal exam, mucous membranes moist Neck exam: Present: normal inspection. Absent: tenderness, meningismus, lymphadenopathy Respiratory exam: Present: normal lung sounds bilaterally. Absent: respiratory distress, wheezes, rales, rhonchi, stridor Cardiovascular Exam: Present: regular rate, normal rhythm, normal heart sounds. Absent: systolic murmur, diastolic murmur, rubs, gallop, clicks GI/Abdominal exam: Present: soft, normal bowel sounds. Absent: distended, tenderness, guarding, rebound, rigid Extremities exam: Present: normal inspection, full ROM, normal capillary refill, other (Bilateral posterior tibialis pulse +2. Neurovascular motor function intact. Negative erythema, stasis dermatitis, edema). Absent: tenderness, pedal edema, joint swelling, calf tenderness Back exam: Present: normal inspection Neurological exam: Present: alert, oriented X3, CN II-XII intact Psychiatric exam: Present: normal affect, normal mood Skin exam: Present: warm, dry, intact, normal color. Absent: rash Course Vital Signs 11/25/24 11/25/24 11/25/24 10:19 10:47 12:35 Temperature 97.9 F Pulse Rate 93 87 73 Respiratory 18 20 20 Rate Blood Pressure 194/79 166/89 135/82 O2 Sat by Pulse 97 97 73 L Oximetry Medical Decision Making - Medical Decision Making Was pt. sent in by a medical professional or institution (TARIQ Hamm, SHAKE TABLE OPERATOR, urgent care, hospital, or penitentiary...) When possible be specific @ -[No] Did you speak to anyone other than the patient for history (EMS, parent, family, police, friend...)? What history was obtained from this source @ -[No] Did you review nursing and triage notes (agree or disagree)? Why? @ -[I reviewed and agree with nursing and triage notes] Were old charts reviewed (outside hosp., previous admission, EMS record, old EKG, old radiological studies, urgent care reports/EKG's, penitentiary records)? Report findings @ -[No old charts were reviewed] Differential Diagnosis (chest pain, altered mental status, abdominal pain women, abdominal pain men, vaginal bleeding, weakness, fever, dyspnea, syncope, headache, dizziness, GI bleed, back pain, seizure, CVA, palpatations, mental health, musculoskeletal)? @ -Differential Chest Pain: Stable Angina, Unstable Angina, STEMI, NSTEMI Aortic Dissection, Pneumothorax, Musculoskeletal, Esophageal Spasm GERD, Cholecystitis, Pancreatitis, Zoster, this is not meant to be an all-inclusive list. Differential Back Pain: Strain, zoster, cauda equina syndrome, epidural abscess, vertebral osteomyelitis, discitis, fracture, subluxation, disc herniation, DJD, spinal stenosis, dissection, AAA, pancreatitis, peptic ulcer disease, pyelonephritis, kidney stone, this is not meant to be an all-inclusive list. EKG interpreted by me (3pts min.). @ -Sinus rhythm with incomplete RBBB. No ST changes or T wave inversion. Ventricular rate 83 bpm, JOHN PAUL 152 ms, QRS duration 95 ms, QTc 391 ms. X-rays interpreted by me (1pt min.). @ -[None done] CT interpreted by me (1pt min.). @ -[None done] U/S interpreted by me (1pt. min.). @ -[None done] What testing was considered but not performed or refused? (CT, X-rays, U/S, labs)? Why? @ -[None] What meds were considered but not given or refused? Why? @ -[None] Did you discuss the management of the patient with other professionals (professionals i.e. TARIQ Hamm, SHAKE TABLE OPERATOR, lab, RT, psych nurse, older adult social work specialist, sales marketing director, teacher, escrow officer, transplant case manager)? Give summary @ -[No] Was smoking cessation discussed for >3mins.? @ -[No] Was critical care preformed (if so, how long)? @ -[No] Were there social determinants of health that impacted care today? How? (Homelessness, low income, unemployed, alcoholism, drug addiction, transportation, low edu. Level, literacy, decrease access to med. care, shelter, rehab)? @ -[No] Was there de-escalation of care discussed even if they declined (Discuss DNR or withdrawal of care, Hospice)? DNR status @ -[No] What co-morbidities impacted this encounter? (DM, HTN, Smoking, COPD, CAD, Cancer, CVA, ARF, Chemo, Hep., AIDS, mental health diagnosis, sleep apnea, morbid obesity)? @ -[None] Was patient admitted / discharged? Hospital course, mention meds given and route, prescriptions, significant lab abnormalities, going to OR and other pertinent info. @ -[hospital course] Undiagnosed new problem with uncertain prognosis? @ -[No] Drug Therapy requiring intensive monitoring for toxicity (Heparin, Nitro, Insulin, Cardizem)? @ -[No] Were any procedures done? @ -[No] Diagnosis/symptom? @ -[default] Acute, or Chronic, or Acute on Chronic? @ -Acute Uncomplicated (without systemic symptoms) or Complicated (systemic symptoms)? @ -Complicated Side effects of treatment? @ -[No] Exacerbation, Progression, or Severe Exacerbation? @ -[No] Poses a threat to life or bodily function? How? (Chest pain, [place], [place], pneumonia, PE, COPD, DKA, ARF, appy, cholecystitis, CVA, Diverticulitis, Homicidal, Suicidal, threat to staff... and all critical care pts) @ -[No] - Lab Data Result diagrams: 11/25/24 10:39 11/25/24 10:39 Lab Results 11/25/24 11/25/24 11/25/24 Range/Units 10:39 10:39 10:39 WBC 8.0 (3.8-10.6) k/uL RBC 5.59 H (3.80-5.40) m/uL Hgb 17.1 H (11.4-16.0) gm/dL Hct 51.6 H (34.0-46.0) % MCV 92.4 (80.0-100.0) fL MCH 30.7 (25.0-35.0) pg MCHC 33.2 (31.0-37.0) g/dL RDW 13.3 (11.5-15.5) % Plt Count 481 H (150-450) k/uL MPV 6.8 Neutrophils % 68 % Lymphocytes % 23 % Monocytes % 4 % Eosinophils % 2 % Basophils % 1 % Neutrophils # 5.4 (1.3-7.7) k/uL Lymphocytes # 1.9 (1.0-4.8) k/uL Monocytes # 0.3 (0-1.0) k/uL Eosinophils # 0.2 (0-0.7) k/uL Basophils # 0.1 (0-0.2) k/uL PT 10.7 (10.0-12.5) sec INR 1.0 (<1.2) APTT 25.8 (22.0-30.0) sec D-Dimer 0.45 (<0.60) mg/L FEU Sodium 139 (137-145) mmol/L Potassium 4.3 (3.5-5.1) mmol/L Chloride 102 (98-107) mmol/L Carbon Dioxide 26 (22-30) mmol/L Anion Gap 11 mmol/L BUN 14 (7-17) mg/dL Creatinine 0.78 (0.52-1.04) mg/dL Est GFR (CKD-EPI)AfAm >90 (>60 ml/min/1.73 sqM) Est GFR (CKD-EPI)NonAf 79 (>60 ml/min/1.73 sqM) Glucose 103 H (74-99) mg/dL Calcium 10.4 H (8.4-10.2) mg/dL Magnesium 2.3 (1.6-2.3) mg/dL Total Bilirubin 0.5 (0.2-1.3) mg/dL AST 28 (14-36) U/L ALT 24 (4-34) U/L Alkaline Phosphatase 103 (38-126) U/L Troponin I (0.000-0.034) ng/mL Total Protein 8.3 H (6.3-8.2) g/dL Albumin 5.1 H (3.5-5.0) g/dL 11/25/24 Range/Units 10:39 WBC (3.8-10.6) k/uL RBC (3.80-5.40) m/uL Hgb (11.4-16.0) gm/dL Hct (34.0-46.0) % MCV (80.0-100.0) fL MCH (25.0-35.0) pg MCHC (31.0-37.0) g/dL RDW (11.5-15.5) % Plt Count (150-450) k/uL MPV Neutrophils % % Lymphocytes % % Monocytes % % Eosinophils % % Basophils % % Neutrophils # (1.3-7.7) k/uL Lymphocytes # (1.0-4.8) k/uL Monocytes # (0-1.0) k/uL Eosinophils # (0-0.7) k/uL Basophils # (0-0.2) k/uL PT (10.0-12.5) sec INR (<1.2) APTT (22.0-30.0) sec D-Dimer (<0.60) mg/L FEU Sodium (137-145) mmol/L Potassium (3.5-5.1) mmol/L Chloride (98-107) mmol/L Carbon Dioxide (22-30) mmol/L Anion Gap mmol/L BUN (7-17) mg/dL Creatinine (0.52-1.04) mg/dL Est GFR (CKD-EPI)AfAm (>60 ml/min/1.73 sqM) Est GFR (CKD-EPI)NonAf (>60 ml/min/1.73 sqM) Glucose (74-99) mg/dL Calcium (8.4-10.2) mg/dL Magnesium (1.6-2.3) mg/dL Total Bilirubin (0.2-1.3) mg/dL AST (14-36) U/L ALT (4-34) U/L Alkaline Phosphatase (38-126) U/L Troponin I <0.012 (0.000-0.034) ng/mL Total Protein (6.3-8.2) g/dL Albumin (3.5-5.0) g/dL Disposition Clinical Impression: Hypertensive urgency Disposition: HOME SELF-CARE Condition: Good Instructions (If sedation given, give patient instructions): Hypertension in the Older Adult (ED) Is patient prescribed a controlled substance at d/c from ED?: No Referrals: Marshall Angel MD [Primary Care Provider] - 1-2 days Time of Disposition: 13:02
[2024-11-25] MEDS: ASPIRIN 81 MG PO STA (10:46)
[2024-11-25] MEDS: cloNIDine HCL 0.1 MG TAB PO STA (10:47)
[2024-11-25 10:48] VITALS: RESP 20
[2024-11-25 10:51] LABS: Basophils # (A) 0.1 k/uL (0-0.2); Basophils % (A) 1 %; Eosinophils # (A) 0.2 k/uL (0-0.7); Eosinophils % (A) 2 %; HCT 51.6 % (34.0-46.0); HGB 17.1 gm/dL (11.4-16.0); Lymphocytes # (A) 1.9 k/uL (1.0-4.8); Lymphocytes % (A) 23 %; MCH 30.7 pg (25.0-35.0); MCHC 33.2 g/dL (31.0-37.0); MCV 92.4 fL (80.0-100.0); Mean Platelet Volume 6.8; Monocytes # (A) 0.3 k/uL (0-1.0); Monocytes % (A) 4 %; Neutrophils # (A) 5.4 k/uL (1.3-7.7); Neutrophils % (A) 68 %; Platelet Count 481 k/uL (150-450); RBC 5.59 m/uL (3.80-5.40); RDW 13.3 % (11.5-15.5)
[2024-11-25 11:03] LABS: Partial Thromboplastin Time 25.8 sec (22.0-30.0); Prothrombin Time 10.7 sec (10.0-12.5)
[2024-11-25 11:07] LABS: ALT 24 U/L (4-34); AST 28 U/L (14-36); African American GFR (CKD) >90 (>60 ml/min/1.73 sqM); Albumin 5.1 g/dL (3.5-5.0); Alkaline Phosphatase 103 U/L (38-126); Anion Gap 11 mmol/L; Blood Urea Nitrogen 14 mg/dL (7-17); Calcium 10.4 mg/dL (8.4-10.2); Carbon Dioxide 26 mmol/L (22-30); Chloride 102 mmol/L (98-107); Glucose 103 mg/dL (74-99); Magnesium 2.3 mg/dL (1.6-2.3); Non-African American GFR(CKD) 79 (>60 ml/min/1.73 sqM); Potassium 4.3 mmol/L (3.5-5.1); Sodium 139 mmol/L (137-145); Total Bilirubin 0.5 mg/dL (0.2-1.3); Total Protein 8.3 g/dL (6.3-8.2)
--- NOTE | 2024-11-25 11:15 | XR ---
EXAMINATION TYPE: XR chest 2V DATE OF EXAM: 11/25/2024 11:06 AM COMPARISON: None. CLINICAL INDICATION: Female, 69 years old with history of s/o Right upper back pain, TECHNIQUE: XR chest 2V view(s) obtained. FINDINGS: The heart size is normal. The pulmonary vasculature is normal. The lungs are clear. There is a stent in the region of the great vessels above the aortic arch. IMPRESSION: 1. No acute pulmonary process. [facility], , 11/25/2024 11:13 AM
[2024-11-25] MEDS: SODIUM CHLORIDE 0.9% 500 ML 500 ML IV STA (12:36)
[2024-11-25 13:30] VITALS: BP 129/89; PULSE 70
== END 2024-11-25 13:30 | disposition home or self-care (01) ==
LOC: EC 10:18
DX: I16.0 Hypertensive urgency (principal); F17.200 Nicotine dependence, unspecified, uncomplicated
CPT/HCPCS: 36415; 71046; 80053; 83735; 84484; 85025; 85379; 85610; 85730; 93005; 99283

== ENCOUNTER 2024-11-27 12:23 | Emergency (ER) | payer MEDICARE ==
[2024-11-27 12:34] VITALS: TEMP 98.5
[2024-11-27 13:42] LABS: Basophils # (A) 0.1 k/uL (0-0.2); Basophils % (A) 1 %; Eosinophils # (A) 0.2 k/uL (0-0.7); Eosinophils % (A) 2 %; HCT 47.4 % (34.0-46.0); HGB 15.9 gm/dL (11.4-16.0); Lymphocytes # (A) 2.6 k/uL (1.0-4.8); Lymphocytes % (A) 23 %; MCH 30.5 pg (25.0-35.0); MCHC 33.5 g/dL (31.0-37.0); MCV 91.1 fL (80.0-100.0); Mean Platelet Volume 7.5; Monocytes # (A) 0.3 k/uL (0-1.0); Monocytes % (A) 3 %; Neutrophils # (A) 7.8 k/uL (1.3-7.7); Neutrophils % (A) 70 %; Platelet Count 485 k/uL (150-450); RBC 5.21 m/uL (3.80-5.40); RDW 13.7 % (11.5-15.5); WBC 11.1 k/uL (3.8-10.6)
[2024-11-27 14:05] LABS: ALT 26 U/L (4-34); African American GFR (CKD) >90 (>60 ml/min/1.73 sqM); Anion Gap 11 mmol/L; Blood Urea Nitrogen 14 mg/dL (7-17); Calcium 10.1 mg/dL (8.4-10.2); Carbon Dioxide 26 mmol/L (22-30); Chloride 99 mmol/L (98-107); Glucose 122 mg/dL (74-99); Non-African American GFR(CKD) 86 (>60 ml/min/1.73 sqM); Sodium 136 mmol/L (137-145)
[2024-11-27 14:23] LABS: AST 42 U/L (14-36); Albumin 5.2 g/dL (3.5-5.0); Alkaline Phosphatase 77 U/L (38-126); Potassium 4.3 mmol/L (3.5-5.1); Total Bilirubin 0.9 mg/dL (0.2-1.3); Total Protein 8.7 g/dL (6.3-8.2)
--- NOTE | 2024-11-27 14:36 | ED ---
Recheck HPI - General Source: patient, RN notes reviewed Mode of arrival: ambulatory Limitations: no limitations <Leodan Koch - Last Filed: 11/27/24 14:35> <Cisco Lovell - Last Filed: 11/27/24 16:35> - General Chief Complaint: Recheck/Abnormal Lab/Rx Stated Complaint: Irreg blood pressure Time Seen by Provider: 11/27/24 12:37 - History of Present Illness Initial Comments: Quick note: This is a 69-year-old female with history of hypertension presenting with elevated blood pressure. Patient states her first blood pressure today was normal with 140 SBP. States blood pressure at 1100 was 189 over 98 mmHg, causing her concern to come to the ER. Patient states PCP recently added amlodipine 2.5 mg to her blood pressure regimen. Endorses use of baby aspirin this morning as well. Denies headache, chest pain, dizziness, dyspnea, vision change, nausea/vomiting. (Leodan Koch) This is a 69-year-old female who presents to the emergency department stating that her blood pressure was high a couple days ago show she came to the emergency department she had a workup done and was sent home eventually and she spoke with her primary medical care doctor and he doubled her amlodipine dose in the evening. Patient states today she woke up her blood pressure was good but about 11:00 her blood pressure was elevated and that got her concerned so she came back to the emergency department. Patient denies any symptoms. Patient denies chest pain difficulty breathing shortness of breath. Patient has headache patient has blurred vision. Patient denies any nausea vomiting d iarrhea. Patient states aside from seeing her blood pressure is high she has no symptoms whatsoever. Patient is a smoker and continues to smoke. (Cisco Lovell) - Related Data Home Medications Medication Instructions Recorded Confirmed Simvastatin [Zocor] 10 mg PO HS 06/27/15 04/18/21 lisinopriL [Zestril] 10 mg PO BID 06/27/15 04/18/21 Aspirin 81 mg PO DAILY 07/20/20 04/18/21 amLODIPine [Norvasc] 2.5 mg PO BID 04/18/21 04/18/21 hydroCHLOROthiazide 25 mg PO DAILY 04/18/21 04/18/21 Allergies Allergy/AdvReac Type Severity Reaction Status Date / Time No Known Allergies Allergy Verified 11/27/24 12:33 Review of Systems ROS Other: All systems not noted in ROS Statement are negative. <ZeeLeodan - Last Filed: 11/27/24 14:35> ROS Other: All systems not noted in ROS Statement are negative. <Cisco Lovell - Last Filed: 11/27/24 16:35> ROS Statement: Those systems with pertinent positive or pertinent negative responses have been documented in the HPI. 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 History of Any Multi-Drug Resistant Organisms: None Reported Past Surgical History: Hysterectomy, Orthopedic Surgery Additional Past Surgical History / Comment(s): RT LEG ORIF, BILATERAL CATARACTS REMOVED. Past Anesthesia/Blood Transfusion Reactions: Motion Sickness Additional Past Anesthesia/Blood Transfusion Reaction / Comment(s): STATES IS VERY SENSITIVE TO MEDICATIONS, HAS A VERY HARD TIME WAKING UP WITH ANY ANESTHESIA. Past Psychological History: No Psychological Hx Reported Smoking Status: Current every day smoker Past Alcohol Use History: None Reported Past Drug Use History: None Reported - Past Family History Brother(s) Additional Family Medical History / Comment(s): "Blood clot, from it." Sister(s) Family Medical History: Cancer Additional Family Medical History / Comment(s): 2 SISTERS, ONE PANCREACREATIC, other had it in her leg. <ZeeLeodan - Last Filed: 11/27/24 14:35> General Exam Limitations: no limitations <ZeeLeodan - Last Filed: 11/27/24 14:35> <Cisco Lovell - Last Filed: 11/27/24 16:35> - General Exam Comments Initial Comments: GENERAL: Patient is well-developed and well-nourished. Patient is nontoxic and well- hydrated and is in no acute distress. ENT: Neck is soft and supple. No significant lymphadenopathy is noted. Oropharynx is clear. Moist mucous membranes. Neck has full range of motion without eliciting any pain. EYES: The sclera were anicteric and conjunctiva were pink and moist. Extraocular movements were intact and pupils were equal round and reactive to light. Eyelids were unremarkable. PULMONARY: Unlabored respirations. Good breath sounds bilaterally. No audible rales rhonchi or wheezing was noted. CARDIOVASCULAR: There is a regular rate and rhythm without any murmurs gallops or rubs. SKIN: Skin is clear with no lesions or rashes and otherwise unremarkable. NEUROLOGIC: Patient is alert and oriented x3. Cranial nerves II through XII are grossly intact. Motor and sensory are also intact. Normal speech, volume and content. Symmetrical smile MUSCULOSKELETAL: Normal extremities with adequate strength and full range of motion. LYMPHATICS: No significant lymphadenopathy is noted PSYCHIATRIC: Normal psychiatric evaluation. (Cisco Lovell) Course Vital Signs 11/27/24 11/27/24 11/27/24 12:31 15:54 16:16 Temperature 98.5 F Pulse Rate 94 89 Respiratory 16 18 Rate Blood Pressure 159/88 170/93 Blood Pressure 156/93 [Left Arm] Blood Pressure 158/92 [Right Arm] O2 Sat by Pulse 97 98 Oximetry Medical Decision Making - Lab Data Result diagrams: 11/27/24 12:46 11/27/24 12:46 <Leodan Koch - Last Filed: 11/27/24 14:35> - Lab Data Result diagrams: 11/27/24 12:46 11/27/24 12:46 <Cisco Lovell - Last Filed: 11/27/24 16:35> - Medical Decision Making EKG is interpreted by myself but EKG shows a sinus rhythm 87 bpm AL 157 QRS 93 QT interval is 353 QTc is 398. Patient's EKG shows no ST segment ovation or depression. Was pt. sent in by a medical professional or institution (, PA, LEAD PASTOR, urgent care, hospital, or [facility]...) When possible be specific @ -No Did you speak to anyone other than the patient for history (EMS, parent, family, police, friend...)? What history was obtained from this source @ -No Did you review nursing and triage notes (agree or disagree)? Why? @ -I reviewed and agree with nursing and triage notes Were old charts reviewed (outside hosp., previous admission, EMS record, old EKG, old radiological studies, urgent care reports/EKG's, [facility] records)? Report findings @ -No old charts were reviewed Differential Diagnosis? @ -Hypertension, hypertensive urgency, hypertensive emergency, this is not an all-inclusive list EKG interpreted by me (3pts min.). @ -As above X-rays interpreted by me (1pt min.). @ -None done CT interpreted by me (1pt min.). @ -None done U/S interpreted by me (1pt. min.). @ -None done What testing was considered but not performed or refused? (CT, X-rays, U/S, labs)? Why? @ -None What meds were considered but not given or refused? Why? @ -None Did you discuss the management of the patient with other professionals (professionals i.e. DrCresencio, PA, LEAD PASTOR, lab, RT, psych nurse, perinatal social worker, welding machine operator friction, teacher, postal delivery officer, classification case manager)? Give summary @ -No Was smoking cessation discussed for >3mins.? @ -No Was critical care preformed (if so, how long)? @ -No Were there social determinants of health that impacted care today? How? (Homelessness, low income, unemployed, alcoholism, drug addiction, transportation, low edu. Level, literacy, decrease access to med. care, penitentiary, rehab)? @ -No Was there de-escalation of care discussed even if they declined (Discuss DNR or withdrawal of care, Hospice)? DNR status @ -No What co-morbidities impacted this encounter? (DM, HTN, Smoking, COPD, CAD, Cancer, CVA, ARF, Chemo, Hep., AIDS, mental health diagnosis, sleep apnea, morbid obesity)? @ -None Was patient admitted / discharged? Hospital course, mention meds given and route, prescriptions, significant lab abnormalities, going to OR and other pertinent info. @ -Patient remained asymptomatic throughout the ED stay and blood pressure was only mildly elevated and so patient will be discharged home to continue taking her amlodipine 5 mg twice a day and I will add on hydrochlorothiazide for her midday if necessary. Undiagnosed new problem with uncertain prognosis? @ -No Drug Therapy requiring intensive monitoring for toxicity (Heparin, Nitro, Insuli n, Cardizem)? @ -No Were any procedures done? @ -No Diagnosis/syptom? @ -Hypertension Acute, or Chronic, or Acute on Chronic? @ -Acute Uncomplicated (without systemic symptoms) or Complicated (systemic symptoms)? @ -Uncomplicated Side effects of treatment? @ -No Exacerbation, Progression, or Severe Exacerbation? @ -No Poses a threat to life or bodily function? How? (Chest pain, [place], [place], pneumonia, PE, COPD, DKA, ARF, appy, cholecystitis, CVA, Diverticulitis, Homicidal, Suicidal, threat to staff... and all critical care pts) @ -No (Cisco Lovell) - Lab Data Lab Results 11/27/24 11/27/24 11/27/24 Range/Units 12:46 12:46 12:46 WBC 11.1 H (3.8-10.6) k/uL RBC 5.21 (3.80-5.40) m/uL Hgb 15.9 (11.4-16.0) gm/dL Hct 47.4 H (34.0-46.0) % MCV 91.1 (80.0-100.0) fL MCH 30.5 (25.0-35.0) pg MCHC 33.5 (31.0-37.0) g/dL RDW 13.7 (11.5-15.5) % Plt Count 485 H (150-450) k/uL MPV 7.5 Neutrophils % 70 % Lymphocytes % 23 % Monocytes % 3 % Eosinophils % 2 % Basophils % 1 % Neutrophils # 7.8 H (1.3-7.7) k/uL Lymphocytes # 2.6 (1.0-4.8) k/uL Monocytes # 0.3 (0-1.0) k/uL Eosinophils # 0.2 (0-0.7) k/uL Basophils # 0.1 (0-0.2) k/uL Sodium 136 L (137-145) mmol/L Potassium 4.3 (3.5-5.1) mmol/L Chloride 99 (98-107) mmol/L Carbon Dioxide 26 (22-30) mmol/L Anion Gap 11 mmol/L BUN 14 (7-17) mg/dL Creatinine 0.73 (0.52-1.04) mg/dL Est GFR (CKD-EPI)AfAm >90 (>60 ml/min/1.73 sqM) Est GFR (CKD-EPI)NonAf 86 (>60 ml/min/1.73 sqM) Glucose 122 H (74-99) mg/dL Calcium 10.1 (8.4-10.2) mg/dL Total Bilirubin 0.9 (0.2-1.3) mg/dL AST 42 H (14-36) U/L ALT 26 (4-34) U/L Alkaline Phosphatase 77 (38-126) U/L Troponin I <0.012 (0.000-0.034) ng/mL Total Protein 8.7 H (6.3-8.2) g/dL Albumin 5.2 H (3.5-5.0) g/dL Disposition <Leodan Koch - Last Filed: 11/27/24 14:35> Is patient prescribed a controlled substance at d/c from ED?: No Time of Disposition: 16:26 <Cisco Lovell - Last Filed: 11/27/24 16:35> Clinical Impression: Hypertension Disposition: HOME SELF-CARE Condition: Good Instructions (If sedation given, give patient instructions): Hypertension (ED) Additional Instructions: Patient should take an extra dose of lisinopril if her blood pressure is significantly elevated either systolic greater than 160 or diastolic greater than 100 Referrals: Marshall Angel MD [Primary Care Provider] - 1-2 days
[2024-11-27 15:55] VITALS: PULSE 89; RESP 18
[2024-11-27 16:17] VITALS: BP 156/93
== END 2024-11-27 17:02 | disposition home or self-care (01) ==
LOC: EC 12:23
DX: I10 Essential (primary) hypertension (principal); F17.200 Nicotine dependence, unspecified, uncomplicated; Z79.899 Other long term (current) drug therapy
CPT/HCPCS: 36415; 80053; 84484; 85025; 93005; 99284